=== PATIENT | male | born 1930 | race Caucasian/White ===

== ENCOUNTER 2017-11-01 15:52 | Emergency (ER) | payer MEDICARE, MEDICAID ==
--- NOTE | 2017-11-01 16:40 | EDM.PDOC ---
ED HPI GENERAL MEDICAL PROBLEM - General Chief Complaint: General Stated Complaint: FEVER Time Seen by Provider: 11/01/17 16:25 Source of Information: Reports: Patient, Correction Records History Limitations: Reports: Other (Dementia) - History of Present Illness INITIAL COMMENTS - FREE TEXT/NARRATIVE: 87 YO WM with PMH of dementia who was sent to ER by [facility] with questionable fever. Pt had blood work at [facility] today which showed no signs of infection but patient was sent to ER for admission and IV antibiotics. Pt is unable to provide history due to dementia. Discussed case with oncall provider, Rocky Martinez who recommended further evaluation with lab work from the hospital. Pt resting comfortably without complaints. Pt without documented fever in ER and normal vital signs so I will refrain from blood cultures at this time. Onset: Today Duration: Day(s): (1) Location: Reports: Generalized Worsens with: Reports: None Associated Symptoms: Reports: No Other Symptoms - Related Data Allergies Allergy/AdvReac Type Severity Reaction Status Date / Time Sulfa (Sulfonamide Allergy Unknown Verified 11/01/17 18:19 Antibiotics) Home Meds: Home Meds Acetaminophen 650 mg PO BID 11/01/17 [History] Cyanocobalamin (Vitamin B-12) [Cyanocobalamin Injection] 1 ml IM ASDIRECTED [History] OLANZapine [Olanzapine] 5 mg PO BID 11/01/17 [History] Polyethylene Glycol 3350 [MiraLAX] 17 gm PO DAILY 11/01/17 [History] Scopolamine [Transderm-Scop] 1 patch TOP Q3D 11/01/17 [History] medroxyPROGESTERone Acetate [Medroxyprogesterone Acetate] 1 ml IM ASDIRECTED [History] ED ROS GENERAL - Review of Systems Review Of Systems: See Below Constitutional: Reports: Fever HEENT: Reports: No Symptoms Respiratory: Reports: No Symptoms Cardiovascular: Reports: No Symptoms Endocrine: Reports: No Symptoms GI/Abdominal: Reports: No Symptoms : Reports: No Symptoms Musculoskeletal: Reports: No Symptoms Skin: Reports: No Symptoms Neurological: Reports: No Symptoms Psychiatric: Reports: No Symptoms Hematologic/Lymphatic: Reports: No Symptoms Immunologic: Reports: No Symptoms ED EXAM, GENERAL - Physical Exam Exam: See Below Exam Limited By: No Limitations General Appearance: Alert, WD/WN, No Apparent Distress Nose: Normal Inspection, Normal Mucosa, No Blood Throat/Mouth: Normal Inspection, Normal Lips, Normal Teeth, Normal Gums, Normal Oropharynx, Normal Voice, No Airway Compromise Head: Atraumatic, Normocephalic Neck: Normal Inspection, Supple, Non-Tender, Full Range of Motion Respiratory/Chest: No Respiratory Distress, Lungs Clear, Normal Breath Sounds, No Accessory Muscle Use, Chest Non-Tender Cardiovascular: Normal Peripheral Pulses, Regular Rate, Rhythm, No Edema, No Gallop, No JVD, No Murmur, No Rub GI/Abdominal: Normal Bowel Sounds, Soft, Non-Tender, No Organomegaly, No Distention, No Abnormal Bruit, No Mass Extremities: Normal Inspection, Normal Range of Motion, Non-Tender, Normal Capillary Refill, No Pedal Edema Neurological: Alert, CN II-XII Intact, Normal Gait, No Motor/Sensory Deficits, Confused, Slow to Respond Psychiatric: Flat Affect Skin Exam: Warm, Dry, Intact, Normal Color, No Rash Lymphatic: No Adenopathy Course - Orders/Labs/Meds Orders: Active Orders 24 hr Category Date Time Status Peripheral IV Care [RC] . DIRECTED Care 11/01/17 16:51 Active CULTURE BLOOD [BC] Stat Lab 11/01/17 16:10 Received CULTURE BLOOD [BC] Stat Lab 11/01/17 16:51 Ordered CULTURE URINE [RM] Stat Lab 11/01/17 18:33 Ordered UA W/MICROSCOPIC [URIN] Stat Lab 11/01/17 18:00 Received Sodium Chloride 0.9% [Normal Saline] 500 ml Med 11/01/17 17:00 Active IV .BOLUS Sodium Chloride 0.9% [Syrex Flush] Med 11/01/17 16:50 Active 5 ml FLUSH Q8HR PRN Blood Culture x2 Reflex Set [OM.PC] Stat Oth 11/01/17 16:51 Ordered Peripheral IV Insertion Adult [OM.PC] Routine Oth 11/01/17 16:50 Ordered Medication Orders Sodium Chloride (Normal Saline) 500 mls @ 500 drops/sec IV .BOLUS DOC Sodium Chloride (Syrex Flush) 5 ml FLUSH Q8HR PRN PRN Reason: Keep Vein Open Labs: Laboratory Tests 11/01/17 11/01/17 11/01/17 Range/Units 16:10 16:10 18:00 WBC 10.3 H (5.0-10.0) 10^3/uL RBC 3.50 L (4.50-6.00) 10^6/uL Hgb 11.0 L (13.0-17.0) g/dL Hct 34.0 L (40.0-52.0) % MCV 97.1 H (82.0-92.0) fL MCH 31.4 H (27.0-31.0) pg MCHC 32.4 (32.0-36.0) g/dL RDW 13.0 (11.5-14.5) % Plt Count 197 (150-400) 10^3/uL MPV 12.2 H (7.4-10.4) fL Immature Gran % (Auto) 0.1 (0.0-5.0) % Neut % (Auto) 71.4 H (50.0-70.0) % Lymph % (Auto) 18.1 L (20.0-40.0) % [place] % (Auto) 9.5 H (2.0-8.0) % Eos % (Auto) 0.5 L (1.0-3.0) % Baso % (Auto) 0.4 (0.0-1.0) % Immature Gran # (Auto) 0.01 (0.00-0.50) 10^3/uL Neut # (Auto) 7.35 H (2.50-7.00) 10^3/uL Lymph # (Auto) 1.86 (1.00-4.00) 10^3/uL [place] # (Auto) 0.98 H (0.10-0.80) 10^3/uL Eos # (Auto) 0.05 L (0.10-0.30) 10^3/uL Baso # (Auto) 0.04 (0.00-0.10) 10^3/uL Sodium 139 (136-145) mmol/L Potassium 5.2 (3.3-5.3) mmol/L Chloride 107 (98-115) mmol/L Carbon Dioxide 17.2 L (21.0-32.0) mmol/L Anion Gap 20.0 H (5-15) mmol/L BUN 50 H (6-25) mg/dL Creatinine 2.00 H (0.51-1.17) mg/dL Est Cr Clr Drug Dosing TNP Estimated GFR (MDRD) 32 mL/min Glucose 112 mg/dL Calcium 9.0 (8.7-10.3) mg/dL Specimen Type [facility] Urine Color Yellow (YELLOW) Urine Appearance Slightly cloudy H (CLEAR) Urine pH 5.0 (5.0-9.0) Ur Specific [place] 1.025 (1.005-1.030) Urine Protein 100 H (NEGATIVE) mg/dL Urine Glucose (UA) Negative (NEGATIVE) mg/dL Urine Ketones Negative (NEGATIVE) mg/dL Urine Occult Blood Small H (NEGATIVE) Urine Nitrite Negative (NEGATIVE) Urine Bilirubin Negative (NEGATIVE) Urine Urobilinogen 0.2 (0.2-1.0) E.U./dL Ur Leukocyte Esterase Small H (NEGATIVE) Urine RBC >100 H /HPF Urine WBC >100 H /HPF Ur Epithelial Cells Few /LPF Amorphous Sediment Few (0/HPF) /HPF Urine Bacteria Many H (NONE TO FEW) /HPF Meds: Medications Generic Name Dose Route Start Last Admin Trade Name Freq PRN Reason Stop Dose Admin Sodium Chloride 500 mls @ 500 drops/sec 11/01/17 17:00 Normal Saline IV .BOLUS DOC Sodium Chloride 5 ml 11/01/17 16:50 Syrex Flush FLUSH Q8HR PRN Keep Vein Open Departure - Departure Time of Disposition: 18:36 Disposition: DC/[facility]fer to [facility] [place] [facility] Condition: Fair Clinical Impression: UTI, Urinary tract infectious disease - Discharge Information Instructions: Urinary Tract Infection, Adult, [id number] Referrals: Chioma Saldaña MD [Primary Care Provider] - Forms: ED Department Discharge Additional Instructions: 1. discharge back to [facility]- Discussed case with Rocky Martinez who agreed with management and will follow up with pt in [place] tomorrow 2. rocephin 1g IV QD until culture and sensitivity are reported 3. supportive care 4. return to ER for worsening symptoms 5. [place] provider to follow up on culture and sensitivities - My Orders Last 24 Hours: My Active Orders 11/01/17 16:10 CULTURE BLOOD [BC] Stat 11/01/17 16:50 Sodium Chloride 0.9% [Syrex Flush] 5 ml FLUSH Q8HR PRN Peripheral IV Insertion Adult [OM.PC] Routine 11/01/17 16:51 Peripheral IV Care [RC] . DIRECTED CULTURE BLOOD [BC] Stat Blood Culture x2 Reflex Set [OM.PC] Stat 11/01/17 17:00 Sodium Chloride 0.9% [Normal Saline] 500 ml IV .BOLUS 11/01/17 18:00 UA W/MICROSCOPIC [URIN] Stat 11/01/17 18:33 CULTURE URINE [RM] Stat - Assessment/Plan Last 24 Hours: My Active Orders 11/01/17 16:10 CULTURE BLOOD [BC] Stat 11/01/17 16:50 Sodium Chloride 0.9% [Syrex Flush] 5 ml FLUSH Q8HR PRN Peripheral IV Insertion Adult [OM.PC] Routine 11/01/17 16:51 Peripheral IV Care [RC] . DIRECTED CULTURE BLOOD [BC] Stat Blood Culture x2 Reflex Set [OM.PC] Stat 11/01/17 17:00 Sodium Chloride 0.9% [Normal Saline] 500 ml IV .BOLUS 11/01/17 18:00 UA W/MICROSCOPIC [URIN] Stat 11/01/17 18:33 CULTURE URINE [RM] Stat Assessment:: 1. UTI 2. subjective fever Plan: 1. discharge back to [facility]- Discussed case with Rocky Martinez who agreed with management and will follow up with pt in [place] tomorrow 2. rocephin 1g IV QD until culture and sensitivity are reported 3. supportive care 4. return to ER for worsening symptoms
[2017-11-01] MEDS ORDERED: Sodium Chloride 0.9% 5 ML Syringe FLUSH PRN (16:50)
[2017-11-01] MEDS ORDERED: Sodium Chloride 0.9% 500 ML IV SCH (17:00)
[2017-11-01 17:17] LABS: CHLORIDE,CL 107 mmol/L (98-115); SODIUM,NA 139 mmol/L (136-145)
[2017-11-01] MEDS ORDERED: cefTRIAXone 1 GM Vial IVPUSH ONE (18:43)
== END 2017-11-01 19:56 ==
LOC: KA.ED 15:52
DX: N39.0 Urinary tract infection, site not specified (principal); Z88.2 Allergy status to sulfonamides; Z79.899 Other long term (current) drug therapy
CPT/HCPCS: 71046; 80048; 81001; 85025; 87040; 87086; 96374; 99284; 99285; J0696; J7040